=== PATIENT | female | born 1945 | race Caucasian/White ===

== ENCOUNTER 2019-06-27 13:54 | Inpatient (IN) ==
[2019-06-27] MEDS ORDERED: DUONEB (A & A) INH ONE (15:45)
[2019-06-27] MEDS ORDERED: ROCEPHIN 2 GM in NS 50 ML IV ONE ×2 (15:46→17:00)
--- NOTE | 2019-06-27 16:02 | Diag Imaging Result Doc PS360 ---
CHEST-1 VIEW - 06/27/2019 INDICATION: dysnpea, hypox, hx of pna COMPARISON: 06/18/2019 FINDINGS: There is worsening pulmonary vascular congestion. There is new extensive bilateral interstitial infiltrates, worst in the right lung base. There is mild cardiomegaly. No pneumothorax or pleural effusion. IMPRESSION: Bilateral pneumonia. A degree of pulmonary edema may also be present. Electronically signed by Dennis Merchant 06/27/2019 3:59 PM
[2019-06-27] MEDS ORDERED: DOXYCYCLINE 100 MG in NS 250 ML IV ONE (16:08)
[2019-06-27 16:23] LABS: BASO# 0.08 X1000 (0.0-0.2); BASO% 0.4 % (0.0-0.8); EOS% 0.5 % (0.0-10.0); HEMOGLOBIN 12.4 g/dL (12.0-16.0); IMM GRAN# 0.28 X1000 (0.0-0.04); IMM GRAN% 1.4 % (0.0-0.5); LYMPH# 0.84 X1000 (1.2-3.4); LYMPH% 4.2 % (20.5-51.1); MCH 31.2 PG (27-31); MCHC 31.8 g/dL (33-37); MONO# 1.45 X1000 (0.11-0.59); MONO% 7.2 % (1.7-9.3); NEUT# 17.27 X1000 (1.4-6.5); NEUT% 86.3 % (42.2-75.2); PLT 247 X1000 (130-400); RBC 3.98 XMIL (4.2-5.4); RDW 13.8 % (11.5-14.5); WBC 20.02 X1000 (4.8-10.8)
[2019-06-27 16:32] LABS: INR 1.21; PROTIME 15.5 Seconds (11.0-16.0); PTT 29.6 Seconds (22.3-41.8)
[2019-06-27 16:37] LABS: POTASSIUM 4.7 mmol/L (3.5-5.1)
[2019-06-27 16:38] LABS: ALB/GLOB RATIO 1.8; ALBUMIN 3.4 g/dL (3.5-5.0); CALCIUM 9.3 mg/dL (8.8-10.2); CREATININE 1.2 mg/dL (0.5-0.9); TOTAL BILIRUBIN 0.77 mg/dL (0.20-1.00); TOTAL PROTEIN 5.3 g/dL (6.3-8.3)
[2019-06-27] MEDS ORDERED: ZOFRAN IV PRN (17:32)
[2019-06-27] MEDS ORDERED: TYLENOL PO PRN (17:32)
[2019-06-27] MEDS ORDERED: DUONEB (A & A) INH PRN (17:36)
[2019-06-27] MEDS: SOLU-MEDROL IV SCH (17:52)
--- NOTE | 2019-06-27 18:19 | PROVIDER DOCUMENTATION ---
This chart was entered by Nereyda Mckeon Scribe, acting as scribe for Wale Martínez MD. HPI-General Adult - General Chief Complaint: SEPSIS ALERT - D Stated Complaint: FLU SYMPTOMS Time Seen by Provider: 06/27/19 15:32 Source: patient, family () Allergies/Adverse Reactions: Patient Allergies Allergy/AdvReac Type Severity Reaction Status Date / Time sulfamethoxazole Allergy Intermediate RASH Verified 06/27/19 16:31 [From Bactrim] trimethoprim [From Bactrim] Allergy Intermediate RASH Verified 06/27/19 16:31 lactose Allergy Unknown Verified 06/27/19 16:31 Home Medications: Home Medication List Medication Instructions Recorded Confirmed Last Taken Type Clonazepam [Klonopin] 1 mg PO BID 07/03/12 04/13/18 06/27/19 History Labetalol [Trandate] 300 mg PO BID 07/03/12 04/13/18 06/27/19 History Citalopram Hydrobromide 1 tab PO BID 04/13/18 04/13/18 06/27/19 History [Citalopram HBr] Simvastatin 20 mg PO QHS 04/13/18 04/13/18 06/26/19 History Iron Carbonyl/Ascorbic Acid 1 ea PO BID #120 tab 04/16/18 06/27/19 Rx [Icar-C] - History of Present Illness -Gen Adult Nature of Presenting Problems: Pt is a 74 yowf brought to the ED by her with c/o of flu symptoms that started a week ago and today is SOB. Pt states she went to her PCP for a physi iveth a week ago and started getting sick the following day. Pt denies hx of lung disease. Pt states she has a dry nonproductive cough that has moved into her chest, muscle soreness, aches, fever of 99 and confusion. Pt does not use O2 at home. Pt denies n/v/d. Pt is alert and nontoxic in appearance. Location of Pain/Injury: reports: chest Pain Radiation: reports: no radiation Quality of Pain: reports: tightness Severity: reports: mild Onset/Duration: reports: gradual, last week Timing: reports: still present, getting worse Context/Activities at Onset: reports: light activity Modifying Factors: improves with: analgesics (temporarily reduce fever and aches). worse with: movement (makes cough worse) Associated Symptoms: reports: chest pain, cough, fatigue, fever/chills, muscle aches, shortness of breath. denies: constipation, diaphoresis, diarrhea, dizziness, nausea, vomiting Similar Symptoms Previously?: No Recently seen or treated by another doctor?: Yes (PCP 1 week ago) Review of Systems - Adult - REVIEW OF SYSTEMS - ADULT Constitutional: reports: see HPI, chills, fever Eyes: reports: no symptoms reported Ears, Nose, Mouth & Throat: reports: no symptoms reported Cardiovascular: reports: see HPI, chest pain (with cough). denies: syncope Respiratory: reports: cough, shortness of breath Gastrointestinal: denies: abdominal pain, diarrhea, nausea, vomiting Genitourinary: reports: no symptoms reported Musculoskeletal: reports: no symptoms reported Integumentary: reports: no symptoms reported Neurological: reports: no symptoms reported Psychiatric: reports: no symptoms reported Endocrine: reports: no symptoms reported Hematologic/Lymphatic: reports: no symptoms reported Allergic/Immunologic: reports: no symptoms reported All Other Systems: Reviewed and Negative Past History - Adult - PAST MEDICAL HISTORY-ADULT Review of Records: reports: Old Records Reviewed, Nursing Assessment Review, Medications Reviewed, Social history reviewed & non-contributory. Major Childhood Illnesses: reports: denies history Cardiovascular: reports: denies history, HTN Respiratory: reports: denies history Gastrointestinal: reports: denies history Obstetrical/Gynecological: reports: denies history Genitourinary: reports: denies history Musculoskeletal: reports: denies history Neurological: reports: denies history Psychiatric: reports: depression Endocrine/Immune: reports: denies history Other Conditions: reports: denies history - PRIOR SURGERIES/PROCEDURES Surgical/Procedure History: reports: orthopedic (extremity) (L wrist) - IMMUNIZATION STATUS Childhood Immunizations: See Nurse Assessment Flu Vaccine: See Nurse Assessment - FAMILY HISTORY Family History: reviewed, not pertinent - SOCIAL HISTORY Smoking: quit greater than 1 year Substance Use: denies Living Situation: family () Physical Exam-General - PHYSICAL EXAM-ADULT Initial Vital Signs Reviewed: Yes (O2 86 RA) - CONSTITUTIONAL General Appearance: alert, mild distress, slow to respond - EYES Eyes: PERRL/EOMI, pink conjunctivae - HEAD, EARS, NOSE, MOUTH & THROAT HENMT: moist mucous membranes - NECK Neck: non-tender, full range of motion, supple, normal inspection - RESPIRATORY Respiratory: chest non-tender, rhonchi (coarse), wheezing (bilateral symteric) - CARDIOVASCULAR Cardiovascular: normal peripheral pulses, regular rate, rhythm, no edema - GASTROINTESTINAL (ABDOMEN) Abdominal Exam: normal bowel sounds, non tender, soft - MUSCULOSKELETAL Back Exam: normal inspection, no CVA tenderness, no vertebral tenderness Extremity: normal range of motion, non-tender, normal gait, normal inspection, no pedal edema - SKIN Integumentary: normal turgor, warm/dry, pallor. negative: diaphoresis - PSYCHIATRIC Psych/Mental Status: normal mood/affect, normal thought content, normal thought process, anxious Progress - PLAN OF CARE/RESULTS Progress/Plan/Lab Results: Vital Signs - 8 hr 06/27/19 14:15 Temperature 97.9 F Pulse Rate 76 Respiratory Rate 18 Blood Pressure 80/54 O2 Sat by Pulse Oximetry 86 L Orders Category Date Time Status Cardiac Monitoring DIRECTED Care 06/27/19 15:34 Active Oxygen Therapy- ED Nursing DIRECTED Care 06/27/19 15:34 Active Saline Loc NOW Care 06/27/19 15:34 Active CHEST-1 VIEW [RAD] Stat Exams 06/27/19 15:35 Ordered CBC WITH ELECTRONIC DIFF [HEME] Stat Lab 06/27/19 15:34 Uncollected CK PROFILE [SP CHEM] Stat Lab 06/27/19 15:34 Uncollected COMPREHENSIVE METABOLIC PANEL [CHEM] Stat Lab 06/27/19 15:34 Uncollected INFLUENZA SCREEN A/B Stat Lab 06/27/19 15:35 Uncollected LACTATE, PLASMA [CHEM] Stat Lab 06/27/19 15:45 Uncollected PRO B-NATRIURETIC PEPTIDE Stat Lab 06/27/19 15:34 Uncollected PROTIME WITH INR [COAG] Stat Lab 06/27/19 15:34 Uncollected PTT [COAG] Stat Lab 06/27/19 15:34 Uncollected TROPONIN T HIGH SENSITIVITY Stat Lab 06/27/19 15:34 Uncollected Albuterol 2.5MG/Ipratrop 0.5MG [Duoneb (A & A)] Med 06/27/19 15:45 Discontinued 3 ml INH NOW ONE Aerosol Treatments Routine Oth 06/27/19 15:45 Active Aerosol Treatments Stat Oth 06/27/19 15:45 Active CP/SOB/Palp >45 yrs of Age Stat Oth 06/27/19 15:34 Ordered EKG [EKG] Stat Ther 06/27/19 15:34 Ordered Result Diagrams: 06/27/19 15:58 06/27/19 15:58 - XRAY 1 XRAY Study: Chest (CHEST-1 VIEW - 06/27/2019 INDICATION: dysnpea, hypox, hx of pna COMPARISON: 06/18/2019 FINDINGS: There is worsening pulmonary vascular congestion. There is new extensive bilateral interstitial infiltrates, worst in the right lung base. There is mild cardiomegaly. No pneumothorax or pleural effusion. IMPRESSION: Bilateral pneumonia. A degree of pulmonary edema may also be present. Electronically signed by Dennis Merchant 06/27/2019 3:59 PM 06/27/19 8709 Interpreting Physician: Dennis Merchant MD Dictated Date/Time: 06/27/19 1551 cc: Wale Martínez MD; Shane uKlkarni MD) Impression: See EMR Report Departure - Departure Date of Disposition Decision: 06/27/19 Time of Disposition Decision: 17:40 DIAGNOSIS: Pneumonia Disposition: ADMITTED INPATIENT 09 Certified Medical Emergency: Emergent Condition: Serious - Critical Care Note This patient required my direct & personal management of CC.: No Attestation - Physician/ SUAD Attestation Patient care was provided by Advanced Practice Provider:: No The physician spent face to face time with patient:: Yes Advanced Practice Provider documentation review:: Supervising physician onsite and consulted in the evaluation and care of this patient. The physician did have a face to face encounter with the patient. This chart was documented by the indicated scribe, (Nereyda Mckeon, Ada) and accurately reflects the services I performed and decisions made by me, Wale Martínez MD, as attested by the provider's signature.
[2019-06-27] MEDS: DUONEB (A & A) INH SCH ×2 (19:55→23:29)
[2019-06-27 20:59] LABS: URINE SOURCE CATH
[2019-06-27 21:02] LABS: BILIRUBIN URINE NEGATIVE (NEGATIVE); BLOOD URINE MODERATE (NEGATIVE); COLOR YELLOW; GLUCOSE URINE NEGATIVE (NEGATIVE); KETONE URINE NEGATIVE (NEGATIVE); LEUKOCYTES URINE NEGATIVE (NEGATIVE); NITRITE URINE NEGATIVE (NEGATIVE); PROTEIN URINE 30 mg/dL (NEGATIVE); SP GRAVITY URINE 1.023; TURBIDITY URINE CLEAR (CLEAR); UROBILINOGEN URINE 2 mg/dL (NORMAL)
[2019-06-27 21:03] LABS: UR EPITHELIAL CELLS <10 /HPF (<10); URINE BACTERIA NEGATIVE /HPF; URINE RBC TNTC /HPF (<10); URINE WBC <10 /HPF (<10)
[2019-06-27] MEDS: NS 1,000 ML IV SCH (21:34)
[2019-06-27] MEDS: MAXIPIME 2 GM/NS 2 GM/100 ML IVPB IV SCH (21:34)
[2019-06-27] MEDS: ZYVOX 600 MG/D5W 600 MG/300 ML IVPB IV SCH (22:21)
[2019-06-27] MEDS ORDERED: BLISTEX MEDICATED BERRY LIP BALM TOP PRN (23:34)
--- NOTE | 2019-06-28 00:31 | HISTORY AND PHYSICAL ---
CHIEF COMPLAINT: Fever, cough, muscle aches. HISTORY OF PRESENT ILLNESS: This is a 74-year-old female with a prior history of hypertension who presents to the emergency room complaining of a dry, nonproductive cough with muscle soreness, aches and a fever of 99 at home. The states that she has been confused over the last 24 hours. She states that she went to her primary care physician a week ago for a physical and the next day she started getting sick. During the day today she has developed some shortness of breath with activity. She has no prior history of shortness of breath. Room air saturation was 86% on arrival to the emergency room and with 4 L nasal cannula saturations have increased to 97% to 98%. PAST MEDICAL HISTORY: Hypertension. PAST SURGICAL HISTORY: Left wrist surgery. SOCIAL HISTORY: She is , lives with her . Denies alcohol, tobacco, or illicit drug use. ALLERGIES: Bactrim which causes a rash and lactose with unknown reaction. HOME MEDICATIONS: A list will be obtained by the nursing staff and once verified we will review and restart as appropriate. REVIEW OF SYSTEMS: Discussed with patient with pertinent positives stated in the HPI. She denied any syncope, dizziness, chest pain, palpitations, a productive cough, any nausea, vomiting, diarrhea, constipation, black or bloody vomitus or stools, any hematuria, dysuria, frequency, urgency. PHYSICAL EXAMINATION: GENERAL: This is a 74-year-old female who is sitting up in the stretcher in the emergency room in no distress. VITAL SIGNS: Blood pressure is 117/63, respirations are 20-22, temperature is 97.9 degrees oral with O2 saturations 96% to 98% on 4 L nasal cannula. HEENT: Head is normocephalic, atraumatic. Mucous membranes are moist. NECK: Supple with trachea midline. CARDIOVASCULAR: Regular rate and rhythm. S1, S2 appreciated. She has no lower extremity edema. Calves are nontender with peripheral pulses palpable x4 extremities. PULMONARY: Breath sounds with rhonchi and wheezes scattered throughout. Chest rises and falls symmetric with respiration. GASTROINTESTINAL: Abdomen is soft, nontender, nondistended with bowel sounds in all 4 quadrants. GENITOURINARY: No CVA or suprapubic tenderness. NEUROLOGIC: She is alert and oriented. SKIN: Warm and dry. LABORATORIES: WBC is 20 with hemoglobin 12.2, hematocrit 39, and platelets 247,000. Sodium 143, potassium 4.7, BUN is 28 with a creatinine of 1.2, glucose is 103. INR 1.21. Flu A and B are negative. Chest x-ray reveals bilateral pneumonia. ASSESSMENT AND PLAN: 1. Bilateral pneumonia. Blood cultures have been obtained. Sputum culture has been ordered. We will continue antibiotic coverage of Rocephin and doxycycline and further antibiotics will be culture driven. We will give DuoNeb q.4 hours with q.2 hours p.r.n. and steroids to taper. Incentive spirometer. 2. Leukocytosis secondary to #1 as stated above. 3. Acute kidney injury. IV hydration and we will recheck labs in the morning. 4. Hypertension. We will identify her home medications and continue. 5. Acute hypoxemic respiratory failure. We will continue with supplemental oxygen. 6. History of immune thrombocytopenic purpura. Aware. 7. Plan was discussed with Dr. Crum. Further treatments pending hospital course. Dictated by ISABELLA Bashir for Tor Crum MD cc: ISABELLA Bashir MD
--- NOTE | 2019-06-28 01:52 | HISTORY AND PHYSICAL ---
ADDENDUM: I have seen and examined Ms. Lynn today in the emergency room. Ms. Lynn presented mainly because of generalized weakness and flulike symptoms. Ms. Lynn said she had just been treated about a week ago for flulike symptoms, which she thought was getting better, but then her daughter contracted the flu again and since then she has been feeling weak. She came to the emergency room where she was evaluated, found to have bilateral pneumonia on imaging studies, and she has been admitted for that. PHYSICAL EXAMINATION: VITAL SIGNS: Upon presentation her saturation was 86% on room air. Blood pressure was 80/54, pulse rate was 76. GENERAL: Ms. Lynn is a 74-year-old elderly female. She is in bed. She is on supplemental oxygen now. HEENT: Mucosa is pink and moist. She does have some purulent discharge in both eyes, which according to her has been going on for a very long time. CHEST: Air entry was bilaterally reduced. There are crackles in both lung rodriges, worse on the right. GASTROINTESTINAL: Abdomen is soft. EXTREMITIES: No pedal edema. CENTRAL NERVOUS SYSTEM: The patient is awake, alert and oriented. IMAGING STUDIES: A chest x-ray which was done early on today shows bilateral pneumonia. LABORATORY DATA: WBC is 20.02, hemoglobin is 12.4, platelet count of 247,000. Chemistry shows creatinine of 1.2. ASSESSMENT AND PLAN: 1. Sepsis associated with transient hypotension. We think the source is from the bilateral pneumonia. The patient has been cultured, and we will start her on broad-spectrum intravenous antibiotics. She did have a previous streptococcal pneumonia. Unsure if it is going to be the same pathogen. I will start broad and then narrow it down if we get the pathogen in hand. 2. Acute hypoxemic respiratory failure. We will continue with supplemental oxygen. 3. Hypotension, improved. 4. Bilateral pneumonia, worse on the right. The patient has been started on broad-spectrum intravenous antibiotics. 5. History of idiopathic thrombocytopenic purpura in the past noted. 6. Bilateral conjunctivitis with purulent discharge. We are going to swab this. Please refer to the details of the history and physical that has been dictated by the nurse practitioner in the chart. I have discussed the plan with her as well. cc: Tor Crum MD
[2019-06-28] MEDS: SOLU-MEDROL IV SCH ×3 (03:13→18:17)
[2019-06-28] MEDS: DUONEB (A & A) INH SCH ×6 (03:22→23:44)
[2019-06-28] MEDS ORDERED: DOXYCYCLINE 100 MG in NS 250 ML IV SCH ×2 (04:00→06:00)
[2019-06-28] MEDS: PRILOSEC PO SCH (06:30)
[2019-06-28] MEDS: NS 1,000 ML IV SCH (06:39)
[2019-06-28 08:36] LABS: BASO# 0.01 X1000 (0.0-0.2); BASO% 0.1 % (0.0-0.8); HEMATOCRIT 36.1 % (37.0-47.0); HEMOGLOBIN 11.8 g/dL (12.0-16.0); IMM GRAN# 0.22 X1000 (0.0-0.04); IMM GRAN% 1.5 % (0.0-0.5); LYMPH# 0.71 X1000 (1.2-3.4); LYMPH% 4.9 % (20.5-51.1); MCHC 32.7 g/dL (33-37); MCV 97.8 FL (81-99); MONO# 0.35 X1000 (0.11-0.59); MONO% 2.4 % (1.7-9.3); MPV 9.9 FL (7.4-10.4); NEUT# 13.29 X1000 (1.4-6.5); NEUT% 91.1 % (42.2-75.2); PLT 242 X1000 (130-400); RBC 3.69 XMIL (4.2-5.4); RDW 13.6 % (11.5-14.5); WBC 14.58 X1000 (4.8-10.8)
[2019-06-28] MEDS: MAXIPIME 2 GM/NS 2 GM/100 ML IVPB IV SCH ×2 (08:40→20:32)
[2019-06-28 08:56] LABS: AGAP 13; ALBUMIN 2.9 g/dL (3.5-5.0); ALKALINE PHOSPHATASE 107 U/L (32-104); BUN 25 mg/dL (8-22); CALCIUM 9.1 mg/dL (8.8-10.2); CHLORIDE 105 mmol/L (98-107); COSMO 286; CREATININE 0.8 mg/dL (0.5-0.9); ESTIMATED GFR > 60; GLUCOSE 138 mg/dL (70-104); GOT 17 U/L (10-30); GPT 26 U/L (10-36); POTASSIUM 4.2 mmol/L (3.5-5.1); SODIUM 140 mmol/L (136-145); TCO2 22 mmol/L (25-35); TOTAL BILIRUBIN 0.35 mg/dL (0.20-1.00); TOTAL PROTEIN 5.7 g/dL (6.3-8.3)
[2019-06-28 09:17] LABS: BANDS 1 % (0-1); LYMPHS 6 % (21-51); MONO 2 % (1-9); NRBC 1 % (0-0); SEGS 91 % (42-75)
[2019-06-28] MEDS: ZYVOX 600 MG/D5W 600 MG/300 ML IVPB IV SCH (10:41)
[2019-06-28] MEDS ORDERED: VANCOMYCIN IV PER PHARMACY MISC SCH (11:45)
--- NOTE | 2019-06-28 12:47 | PROGRESS NOTE ---
DATE: 06/28/2019 SUBJECTIVE: This morning Ms. Lnyn refers to be doing a whole lot better. Her breathing is significantly improved. She has not had any fever. OBJECTIVE: Vital signs: Blood pressure is 156/72, pulse of 84, respirations 16, temperature 98.1 degrees. The patient is saturating 96. General: Ms. Lynn is a 74-year-old elderly female. She is in bed no distress. HEENT: Mucosa is pink and moist. Anicteric. Acyanotic. Both eyes have mild conjunctiva irritation and minimum secretion. Neck: Supple. Respiratory System: Air entry is bilaterally reduced. A few crackles in the posterior lung rodriges. Cardiovascular: Regular rate and rhythm. No murmurs, no rubs, no gallops. GI: Abdomen was soft, nontender. Bowel sounds were present. Extremities: No pedal edema. DRILLER OPERATOR: The patient is awake, alert, oriented. There is no focal deficit. LABORATORY DATA: WBC is down to 14.58, hemoglobin is 11.8, platelet count of 243,000. We still waiting on the chemistry results. So far blood cultures are still pending. Influenza is negative. ASSESSMENT: 1. Sepsis-induced hypotension on presentation, improved. 2. Acute hypoxemic respiratory failure. The patient continues to be on supplemental oxygen, but has significantly improved. 3. Bilateral multifocal pneumonia, worse on the right. We will continue with broad-spectrum IV antibiotics and pending cultures. 4. Bilateral conjunctivitis with purulent discharge. We are pending the swab. The patient will be empirically started on Cipro eye drops. 5. History of Immune thrombocytopenic purpura, noted. 6. Acute kidney injury. The patient has been hydrated overnight. We are pending a chemistry to make further recommendations. PLAN: In general, I think Ms. Lynn is doing a lot better. She says she is breathing better than before. We will continue with the current medical management including antibiotics steroids awaiting and await for the culture report and go from there. cc: Tor Crum MD
[2019-06-28] MEDS ORDERED: VANCOMYCIN 1,300 MG in NS 250 ML IV ONE (13:00)
[2019-06-28] MEDS ORDERED: ROCEPHIN 1 GM in NS 50 ML IV SCH (17:00)
[2019-06-29] MEDS: SOLU-MEDROL IV SCH ×3 (03:05→18:04)
[2019-06-29] MEDS: DUONEB (A & A) INH SCH ×6 (03:41→23:49)
[2019-06-29] MEDS: PRILOSEC PO SCH (05:59)
[2019-06-29 07:53] LABS: HEMOGLOBIN 12.2 g/dL (12.0-16.0); MCH 32.3 PG (27-31); MCV 97.9 FL (81-99); MPV 9.8 FL (7.4-10.4); RBC 3.78 XMIL (4.2-5.4); RDW 13.8 % (11.5-14.5); WBC 16.98 X1000 (4.8-10.8)
[2019-06-29 08:15] LABS: AGAP 15; BUN 29 mg/dL (8-22); CHLORIDE 105 mmol/L (98-107); COSMO 288; CREATININE 0.9 mg/dL (0.5-0.9); ESTIMATED GFR > 60; GLUCOSE 123 mg/dL (70-104); PHOSPHORUS 3.6 mg/dL (2.7-4.5); POTASSIUM 3.8 mmol/L (3.5-5.1); SODIUM 141 mmol/L (136-145); TCO2 21 mmol/L (25-35)
[2019-06-29] MEDS: MAXIPIME 2 GM/NS 2 GM/100 ML IVPB IV SCH ×2 (09:30→20:24)
[2019-06-29] MEDS: CILOXAN OPHTH SOLN BOTH EYES SCH ×7 (11:10→22:25)
[2019-06-29] MEDS: LASIX IV SCH (16:12)
--- NOTE | 2019-06-29 16:18 | EKG Report ---
Test Performed on : 06/29/2019 3:15:32 PM Test Reason : V-Tach, 7 beat run Blood Pressure : / mmHG Vent. Rate : 091 BPM Atrial Rate : 091 BPM P-R Int : 124 ms QRS Dur : 084 ms QT Int : 406 ms P-R-T Axes : 038 005 034 degrees QTc Int : 499 ms Normal sinus rhythm. Prolonged QT Abnormal ECG When compared with ECG of 13-APR-2018 11:04, No significant change was found Confirmed by Mann KING, Jose Montez ([id number]) on 06/30/2019 5:59:37 PM
--- NOTE | 2019-06-29 17:51 | PROGRESS NOTE ---
DATE: 06/29/2019 SUBJECTIVE: Ms. Lynn refers to be doing a lot better today. Oxygenating well. No more shortness of breath. She was transition to room air at 1 point, but she was saturating 93% early this morning. OBJECTIVE: Vital signs: Blood pressure is 162/98, pulse of 97, respirations 16, temperature is 98.3 degrees. General: Ms. Lynn is a 74-year-old, elderly, female. She was in bed. She did not seem to be in any distress. HEENT: Mucosa is pink and moist. Anicteric. Acyanotic. The patient's eyes, discharge has significantly improved. The culture from the eye is growing a gram-negative rosangela. Neck: Supple. Neck: Supple. There is no JVD. Chest: Air entry is bilaterally reduced. A few crackles posteriorly. No wheezing. No rhonchi. Cardiovascular: Regular rate and rhythm. There are no murmurs. GI: Abdomen is soft. Bowel sounds present. Extremities: No pedal edema. CONSERVATION EDUCATOR: Patient is awake, alert, and oriented. There is no focal deficit. LABORATORY DATA: WBC 16.98, hemoglobin is 12.2, platelet count of 289,000. Chemistry is also reviewed. Creatinine has normalized. Pro-BNP is slightly going up; it is currently 6,910. ASSESSMENT: 1. Hypotension on presentation, presumably sepsis induced on the background of the patient on blood pressure medications. Improved with adequate hydration. The patient did not need any pressors. 2. Acute hypoxemic respiratory failure. The patient continues to be on supplemental oxygen. This is being titrated off. 3. Bilateral multifocal pneumonia, worse on the right. We will continue with IV antibiotics. The patient is pending a follow-up chest x-ray tomorrow. 4. Bilateral bacterial conjunctivitis with culture showing gram-negative rosangela. The patient has been started on ciprofloxacin drip and will follow up with the final ID and sensitivity. 5. Acute kidney injury, resolved. 6. History of immune thrombocytopenia, noted. 7. Uncontrolled hypertension. Blood pressure medications were withheld initially because of hypotension. This has been started back. cc: Tor Crum MD
[2019-06-29] MEDS ORDERED: GAMUNEX-C 10% IV ONE ×2 (18:00→19:00)
[2019-06-29] MEDS: CELEXA PO SCH (21:38)
[2019-06-29] MEDS: ZOCOR PO SCH (21:38)
[2019-06-29] MEDS: TRANDATE PO SCH (21:38)
[2019-06-29] MEDS: KLONOPIN PO SCH (21:38)
[2019-06-29] MEDS ORDERED: VANCOMYCIN 1,100 MG in NS 250 ML IV SCH (23:00)
[2019-06-30] MEDS: CILOXAN OPHTH SOLN BOTH EYES SCH ×11 (01:03→20:48)
[2019-06-30] MEDS: SOLU-MEDROL IV SCH ×3 (01:44→19:07)
[2019-06-30] MEDS: DUONEB (A & A) INH SCH ×6 (03:00→22:55)
[2019-06-30] MEDS: LASIX IV SCH ×2 (04:21→15:26)
[2019-06-30] MEDS: MAXIPIME 2 GM/NS 2 GM/100 ML IVPB IV SCH ×2 (04:21→16:33)
[2019-06-30] MEDS: PRILOSEC PO SCH (06:04)
[2019-06-30 07:22] LABS: BASO# 0.04 X1000 (0.0-0.2); BASO% 0.2 % (0.0-0.8); HEMATOCRIT 40.5 % (37.0-47.0); HEMOGLOBIN 13.2 g/dL (12.0-16.0); IMM GRAN# 0.67 X1000 (0.0-0.04); IMM GRAN% 4.1 % (0.0-0.5); LYMPH# 0.77 X1000 (1.2-3.4); LYMPH% 4.7 % (20.5-51.1); MCH 31.4 PG (27-31); MCHC 32.6 g/dL (33-37); MCV 96.4 FL (81-99); MONO# 0.52 X1000 (0.11-0.59); MONO% 3.2 % (1.7-9.3); MPV 9.6 FL (7.4-10.4); NEUT# 14.33 X1000 (1.4-6.5); NEUT% 87.8 % (42.2-75.2); PLT 353 X1000 (130-400); RDW 13.7 % (11.5-14.5); WBC 16.33 X1000 (4.8-10.8)
--- NOTE | 2019-06-30 07:28 | Diag Imaging Result Doc PS360 ---
EXAM: CHEST-2 VIEWS INDICATION: hypoxia TECHNIQUE: 2 views COMPARISON: 06/27/2019 FINDINGS: There has been interval significant improvement of lower lung zone infiltrates bilaterally, worse on the right. No new consolidation is identified. Cardiac silhouette is stable. IMPRESSION: Interval improvement. Electronically signed by Jake Spencer 06/30/2019 7:26 AM
[2019-06-30 07:39] LABS: AGAP 12; ALB/GLOB RATIO 0.6; ALBUMIN 2.9 g/dL (3.5-5.0); ALKALINE PHOSPHATASE 103 U/L (32-104); BUN 32 mg/dL (8-22); CALCIUM 8.6 mg/dL (8.8-10.2); CHLORIDE 101 mmol/L (98-107); COSMO 284; CREATININE 0.8 mg/dL (0.5-0.9); ESTIMATED GFR > 60; GLUCOSE 132 mg/dL (70-104); GOT 27 U/L (10-30); GPT 33 U/L (10-36); POTASSIUM 3.9 mmol/L (3.5-5.1); SODIUM 138 mmol/L (136-145); TCO2 25 mmol/L (25-35); TOTAL BILIRUBIN 0.63 mg/dL (0.20-1.00); TOTAL PROTEIN 7.5 g/dL (6.3-8.3)
[2019-06-30] MEDS: COZAAR PO SCH (08:41)
[2019-06-30] MEDS: TRANDATE PO SCH ×2 (08:41→20:46)
[2019-06-30] MEDS: KLONOPIN PO SCH ×2 (08:41→20:46)
[2019-06-30] MEDS: CELEXA PO SCH ×2 (08:41→20:46)
--- NOTE | 2019-06-30 13:15 | PROGRESS NOTE ---
DATE: 06/30/2019 SUBJECTIVE: This morning Ms. Lynn referred to be doing a lot better. She said the secretion in the eyes is gone, and she is breathing a whole lot better. OBJECTIVE: Vital signs: Blood pressure is 136/82, pulse of 83, respiration is 16, temperature is 98.4 degrees. General exam: Ms. Lynn is a 74-year-old female. She is in bed. She is on nasal cannula. She seems to be saturating well. HEENT: Mucosa is pink and moist. Anicteric. Acyanotic. Neck: Supple. Chest: Good air entry bilateral. Still a few crackles posteriorly, more so to the right lower lobe. No wheezing, no rhonchi. Cardiovascular: Regular rate and rhythm. There are no murmurs, no rubs, no gallops. GI/Abdomen: Soft, nontender. Bowel sounds present. Extremities: No pedal edema. Distal pulses are present. TESTER EQUIPMENT: Patient is awake, alert and oriented. There is no focal deficit. LABORATORY DATA: WBC is 16.33, hemoglobin is 13.2, platelet count of 353. Chemistry is also reviewed, is completely within normal range. X-RAY DATA: A chest x-ray this morning suggests interval improvement. The patient is still on vancomycin and cefepime. She was given a dose of IVIG yesterday. ASSESSMENT: 1. Hypotension on presentation presumed to be multifactorial in etiology, including sepsis, volume depletion and blood pressure medications. Blood pressure has remarkably resolved during the hospital course. Patient did not need any pressors. 2. Acute hypoxemic respiratory failure, improving. The patient is on supplemental oxygen. Respiratory therapy is on board. 3. Multifocal pneumonia, worse on the right side. The patient is on intravenous antibiotics. Repeat chest x-ray this morning shows improvement. 4. Bilateral bacterial conjunctivitis with culture showing Haemophilus parahaemolyticus. Patient is on ciprofloxacin eyedrops. There are no more secretions this morning. 5. Acute kidney injury, resolved. 6. Uncontrolled hypertension. The patient was restarted back on her blood pressure medications yesterday, and this morning the pressure is a lot better. 7. History of idiopathic thrombocytopenic purpura noted. 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 I have also discussed this with his oncologist (Dr. Jenkins) and the patient will be followed up accordingly. cc: Tor Crum MD
[2019-06-30] MEDS: ZOCOR PO SCH (20:46)
[2019-07-01] MEDS: CILOXAN OPHTH SOLN BOTH EYES SCH ×7 (00:19→10:46)
[2019-07-01] MEDS: SOLU-MEDROL IV SCH ×2 (03:06→10:45)
[2019-07-01] MEDS: DUONEB (A & A) INH SCH ×3 (03:31→07:38)
[2019-07-01] MEDS: LASIX IV SCH (04:16)
[2019-07-01] MEDS: MAXIPIME 2 GM/NS 2 GM/100 ML IVPB IV SCH (04:22)
[2019-07-01] MEDS: PRILOSEC PO SCH (06:39)
[2019-07-01 07:27] VITALS: BP 171/92
[2019-07-01] MEDS: COZAAR PO SCH (08:30)
[2019-07-01] MEDS: KLONOPIN PO SCH (08:30)
[2019-07-01] MEDS: TRANDATE PO SCH (08:31)
[2019-07-01] MEDS: CELEXA PO SCH (08:33)
--- NOTE | 2019-07-01 22:38 | DISCHARGE SUMMARY ---
ADMISSION DATE: 06/27/2019 DISCHARGE DATE: 07/01/2019 CONSULTATIONS DURING THIS ADMISSION: None, however the patient's oncologist was notified and Dr. Jenkins was kind enough to come back to say hi to the patient. INVESTIGATIVE PROCEDURES DONE DURING THIS ADMISSION: None. IMAGING STATUS OF SIGNIFICANCE: A chest x-ray on admission did show bilateral pneumonia. A repeat chest x-ray after 3 days showed interval improvement. ADMISSION DIAGNOSES: 1. Bilateral pneumonia. 2. Leukocytosis. 3. Acute kidney injury. 4. Hypertension. 5. Hypoxemic failure. DIAGNOSIS AT THE TIME OF DISCHARGE: 1. Hypotension on presentation, presumed to be multifactorial including sepsis-induced hypotension, volume depletion, and blood pressure medications. 2. Acute hypoxemic respiratory failure, improved. 3. Multifocal pneumonia, worse on the right with elevated procalcitonin level on admission. 4. Bilateral bacterial conjunctivitis with culture positive for Haemophilus parahaemolyticus. The patient was on ciprofloxacin eyedrops, eye secretions resolved. 5. Acute kidney injury on presentation, resolved. 6. Uncontrolled hypertension, improved. 7. History of idiopathic thrombocytopenic purpura (ITP). 8. Hypo-immunoglobulin G. The patient had replacement infusion and will follow up with Dr. Jenkins for re-determination of the levels and to replace as needed. DISCHARGE MEDICATIONS: 1. Labetalol 300 b.i.d. 2. Klonopin as needed. 3. Simvastatin 20 mg p.o. at bedtime. 4. Losartan 100 mg p.o. daily. 5. Cefdinir 300 b.i.d. 6. Prednisone 20 mg p.o. daily. 7. Omeprazole 40 mg p.o. daily. 8. Ciprofloxacin eye drops. PRESENTING COMPLAINT: Cough, fever, muscle pain. HISTORY OF PRESENTING COMPLAINT: Ms Lynn is a 74-year-old female who is known to have ITP, hypertension, came to the emergency department because of body aches, fever of 99 at home, and cough. Upon presenting to the emergency room, she was evaluated, including was found to be hypoxemic with oxygen saturation of 86% on arrival. This got improved with 4 L of supplemental oxygen. The patient's chest x-ray did reveal bilateral pneumonia. She was subsequently admitted for further medical care. HOSPITAL COURSE: Ms Lynn was admitted to the medical floor. She was adequately fluid- resuscitated. Blood pressure improved. Her home medications were withheld initially. Blood cultures so far came back negative. She was started on broad-spectrum IV antibiotics initially. Ms Lynn also had some purulent discharge on her eyes, which culture came back positive for Haemophilus parahaemolyticus. She was started on Ciprofloxacin eyedrops, which cleared the secretions. During the hospital course, Ms Lynn continued to improve the cough and generalized discomfort, got better. She was on IV broad-spectrum antibiotics. This was transitioned to p.o. cefdinir for discharge. During the hospital course Ms Lynn was also found to be low in hemoglobin G level. The IgG level was 110, which was remarkably low. She was given an infusion of IVIG and we notified Dr. Jenkins, who will follow up with Ms Lynn on an outpatient basis. Today, Ms Lynn refers to be doing a lot better. She is saturating well. Her blood pressures have been on the higher end, but she has been started on her blood pressure medication. She has been advised to continue. Her clinical exam, for the most part, is unremarkable. We think she is stable for discharge. Continue with the p.o. antibiotics for an additional 5 days. All the discharge instructions have been discussed with Ms Lynn and she voiced understanding. The was at the bedside at the time of the discharge. TIME SPENT: The time spent for discharge is 37 minutes. cc: MD Dr. Cayla Phillip Dr.
== END 2019-07-01 11:26 | disposition home or self-care (01) | DRG 871 ==
LOC: ED 13:54 → EDIPHOLD 18:04 → 3N 19:27
PROVIDERS: ATTEND Internal Medicine